=== PATIENT | male | born 1990 | race African-American/Black ===

== ENCOUNTER 2019-12-07 09:36 | Emergency (ER) | payer SELFPAY ==
[~2019-12-07] VITALS: Ht 190.5 cm; Wt 136.4 kg
[2019-12-07 09:41] VITALS: BP 129/84
[2019-12-07] MEDS ORDERED: SODIUM CHLORIDE 0.9% 1,000 ML IV ONE (10:15)
[2019-12-07] MEDS ORDERED: MORPHINE SULFATE 4 MG/ML SYRINGE IVP ONE (10:15)
[2019-12-07] MEDS ORDERED: PERTUSS(ACELL),DIPH,TET VAC/PF 0.5 ML VIAL IM ONE (10:15)
[2019-12-07] MEDS ORDERED: FLUORESCEIN SODIUM 1 MG STRIP ONE (10:17)
[2019-12-07] MEDS ORDERED: CeFAZolin 1 GM/DEXTROSE 50 ML IV ONE (10:30)
[2019-12-07] MEDS ORDERED: *CLINICAL-GENTAMICIN DOSING CLINICAL ONE (10:30)
[2019-12-07] MEDS ORDERED: FLUORESCEIN SODIUM 1 MG STRIP OS ONE (10:30)
[2019-12-07] MEDS ORDERED: GENTAMICIN SULFATE 200 MG in DEXTROSE 5%-WATER 100 ML IV ONE (11:00)
== END 2019-12-07 10:41 | disposition short-term general hospital (02) ==
LOC: EMS 09:40
DX: S05.32XA Ocular laceration without prolapse or loss of intraocular tissue, left eye, initial encounter (principal); S41.112A Laceration without foreign body of left upper arm, initial encounter; F12.90 Cannabis use, unspecified, uncomplicated; V43.62XA Car passenger injured in collision with other type car in traffic accident, initial encounter; Y93.89 Activity, other specified; Y92.89 Other specified places as the place of occurrence of the external cause; Y99.8 Other external cause status
CPT/HCPCS: 90471; 90715; 96374; 96375; 99291; J0690; J2270; J7030; J1580; J7060